=== PATIENT | male | born 1950 | race Caucasian/White ===

== ENCOUNTER 2018-12-21 06:37 | Inpatient (IN) | payer OTHER, MEDICARE ==
[2018-12-18 15:15] VITALS: BMI 27.6
[2018-12-21] VITALS (24 sets, daily range): BP systolic 119–156; BP diastolic 69–90; PULSE 71–95; RESP 13–20; Ht 190.5 cm; Wt 98.9 kg
[~2018-12-21] VITALS: Ht 190.5 cm; Wt 98.9 kg
--- NOTE | 2018-12-21 05:45 | HPN ---
Date/Time of Note Date/Time of Note DATE: 12/21/18 TIME: 05:45 Interval H&P Admission Note Pt. seen H&P reviewed: No system changes JANNET BEASLEY MD Dec 21, 2018 05:45
--- NOTE | 2018-12-21 05:47 | OPR ---
Date/Time of Note Date/Time of Note DATE: 12/21/18 TIME: 05:45 Operative Report Procedure Date: Dec 21, 2018 Preoperative Diagnosis Right shoulder secondary arthritis Postoperative Diagnosis 1. Right shoulder secondary glenohumeral arthritis 2. Right shoulder primary acromioclavicular joint arthritis 3. Right shoulder massive, unrepairable rotator cuff tear Operation/Procedure Performed 1. Right reverse total shoulder replacement 2. Right open distal clavicular excision 3. Injection of PRP solution in humerus Surgeon see signature line Mill Tender Second Operator Aryan Mckenzie DO Anesthesia Type: general Estimated Blood Loss: 100 - 150 ml's Transfusion none Specimen None Grafts/Implants See op note Complications none Pt Condition Post Procedure: stable Disposition: PACU Procedure Description PORTRAIT PHOTOGRAPHER SURGEON: Aryan Mckenzie DO was asked to be present for this case at my request. Assistance was necessary as a result of the highly technical nature of this operation. When performing an open total shoulder replacement, it is critical to have a trained medical assistant cardiology who is an expert in handling the extremity and assisting the surgeon in tasks such as manipulation of the arm, protection of the neurovascular structures and positioning the implants. This assistance cannot be performed by a management services technician, as it is considered an integral part of the procedure and the medical assistant cardiology should be compensated for their time. PROCEDURE IN DETAIL: Following the administration of general anesthesia supplemented with a peripheral nerve block for postoperative pain control, the patient was examined under anesthesia. Examination of the right shoulder re vealed very significant stiffness with limited forward flexion of about 100 degrees with a relatively solid endpoint. His abduction was limited to 80 degrees with severe subacromial crepitus. Prior to sterile prep and drape the forearm was then prepped and 60 cc of blood were pulled from the vein. The blood was then given to the rental sales representative to create a PRP infusion. The patient was then placed in the beach chair position. Sterile prep and drape was then undertaken. An extended deltopectoral incision was then carried through the interval exposing the conjoined tendon and retracting it medially. Attention was then directed back to the glenohumeral joint and the deltopectoral interval. The subscapularis was noted to be partially disrupted superiorly. Severe arthritic changes were noted with very large peripheral osteophytes. The superior rotator cuff was torn and retracted. The biceps tendon was torn and retracted. This was debrided. There was a central cyst in that area that was also excised. A humeral head osteotomy was then created in the appropriate degree of version and inclination. The humerus was retracted and the glenoid was exposed. Peripheral osteophytes were removed and a complete capsulectomy performed. The central canal of the glenoid was then entered and prepared for a standard Depuy baseplate. A standard Depuy baseplate was then applied with four peripheral screws and solid fixation. A 38 mm glenosphere was then applied, with solid fixation. The humerus was then reamed and prepared for a 12 mm humeral component with a standard metaphyseal component along with a 9 mm liner. The humeral canal was then thoroughly irrigated and the Vesely prepared PRP solution was then injected into the humeral canal. The actual components were implanted with solid fixation. The arm was taken through full range of motion with no evident instability. The joint was then thoroughly irrigated, the deep tissues were approximated using #1 suture followed by closure of the deep layer using 2-0 Monocryl. The skin was closed using 4-0 Monocryl suture, and a Prenio dressing. An Ultrasling was then applied. The patient was awakened and transported to the recovery room in stable condition. Estimated blood loss for this procedure was 150 cc. Radiographs will be obtained in the recovery room. JANNET BEASLEY MD Dec 21, 2018 05:47
[~2018-12-21 06:37] MED LIST: ATOR10TA65 PO; BENA40TA56 PO; GABA300C16 PO; METO-335 PO; MONT10TA21 PO; OMEP10CA4 PO; SERT50TA6 PO; TAMS0.4C2 PO
[2018-12-21] MEDS ORDERED: DESFLURANE 15 MIN ONE (07:00)
[2018-12-21] MEDS ORDERED: ROCURONIUM 50 MG INJ ONE (07:47)
[2018-12-21] MEDS ORDERED: CEFAZOLIN 1 GM INJ ONE (07:47)
[2018-12-21] MEDS ORDERED: NEOSTIGMINE 3 MG/3 ML SYRINGE ONE (07:47)
[2018-12-21] MEDS ORDERED: PROPOFOL 20 ML ONE (07:47)
[2018-12-21] MEDS ORDERED: GLYCOPYRROLATE 0.4 MG INJ ONE (07:47)
[2018-12-21] MEDS ORDERED: MIDAZOLAM 1 MG/ML 2 ML INJ ONE (07:48)
[2018-12-21] MEDS ORDERED: ONDANSETRON 4 MG INJ ONE (07:49)
[2018-12-21] MEDS ORDERED: FENTAnyl 50 MCG/ML VIAL ONE (07:49)
[2018-12-21] MEDS ORDERED: DEXAMETHASONE 4 MG/ML 5 ML INJ ONE (07:49)
[2018-12-21] MEDS ORDERED: ROPIVACAINE 0.5 % 30 ML VIAL ONE (07:51)
[2018-12-21] MEDS ORDERED: ASPI81TA52 PO (07:59)
[2018-12-21] MEDS ORDERED: SUGAMMADEX SODIUM 200 MG/2 ML VIAL IV ONE (08:30)
[2018-12-21] MEDS ORDERED: METOCLOPRAMIDE 10 MG INJ ONE (08:30)
[2018-12-21] MEDS ORDERED: DEXAMETHASONE 1 MG TAB PO SCH (09:00)
[2018-12-21] MEDS ORDERED: BUPIVACAINE 0.5% (SDV) 30 ML, morphine SULFATE (PF) 8 MG, EPINEPHrine 0.3 MG, KETOROLAC... IRR SCH ×7 (09:00)
[2018-12-21] MEDS ORDERED: CEFAZOLIN 2 GM/50 ML (PMX) 50 ML IVPB SCH (09:00)
[2018-12-21] MEDS ORDERED: GABAPENTIN 300 MG CAP PO SCH ×2 (09:00→21:00)
--- NOTE | 2018-12-21 09:09 | PREAC ---
Date/Time of Note Date/Time of Note DATE: 12/21/18 TIME: 09:07 Anesthesia Eval and Record Evaluation Time Pre-Procedure Interview DATE: 12/21/18 TIME: 09:07 Age 68 Sex male NPO: 8 hrs Preoperative diagnosis RIGHT SHOULDER OA Planned procedure RIGHT REVERSE TOTAL SHOULDER ARTHROPLASTY Past Medical History Past Medical History: Includes Cardio: HTN, Dyslipidemia Endo: Diabetes Pulm: Asthma GI: GERD Psych: Anxiety Surgery & Anesthesia Issues No known issue Meds Anticoagulation: No Beta Willie within 24 hr: Yes Reported Medications Aspirin (Low Dose Aspirin) 81 Mg Tablet.dr, 81 MG PO DAILY, #30 TAB 12/21/18 Sertraline Hcl* (Sertraline Hcl*) 50 Mg Tablet, 50 MG PO DAILY, #30 TAB 12/18/18 Gabapentin* (Gabapentin*) 300 Mg Capsule, 300 MG PO BID, #60 CAP 12/18/18 Montelukast Sodium* (Singulair*) 10 Mg Tablet, 10 MG PO QHS, #30 TAB 12/18/18 Tamsulosin Hcl* (Tamsulosin Hcl*) 0.4 Mg Cap.er.24h, 0.4 MG PO DAILY, CAP 12/18/18 Omeprazole* (Omeprazole*) 10 Mg Capsule.dr, 10 MG PO DAILY, #30 CAP 12/18/18 Atorvastatin Calcium (Atorvastatin Calcium) 10 Mg Tablet, 10 MG PO QHS for 1 Day, #30 TAB 12/18/18 Metoprolol Succinate* (Toprol XL*) 25 Mg Tab.sr.24h, 25 MG PO DAILY, #30 TAB 12/18/18 Benazepril Hcl* (Benazepril Hcl*) 40 Mg Tablet, 40 MG PO DAILY, #30 TAB 12/18/18 Current Medications Cefazolin Sodium/ Dextrose 50 ml @ 100 mls/hr PRE-OP IVPB ; Start 12/21/18 at 09:00; Stop 12/21/18 at 16:00 Tranexamic Acid 1000 mg/Dextrose 110 ml @ 200 mls/hr Pre-op IVPB ; Start 12/21/18 at 09:00; Stop 12/21/18 at 16:00 Bupivacaine HCl/ Morphine Sulfate/ Epinephrine/ Ketorolac Tromethamine/ Clonidine/Sodium Chloride/ Vancomycin HCl INTRA-OP IRR ; Start 12/21/18 at 09:00; Stop 12/21/18 at 16:00 Dexamethasone (Decadron) 2 mg PREOP PO Last administered on 12/21/18at 08:07; Admin Dose 2 MG; Start 12/21/18 at 09:00; Stop 12/21/18 at 16:00 Gabapentin (Neurontin) 300 mg ONCE PO Last administered on 12/21/18at 08:07; Admin Dose 300 MG; Start 12/21/18 at 09:00; Stop 12/21/18 at 16:00 Meds reviewed: Yes Allergies Coded Allergies: No Known Allergy (Unverified , 12/21/18) Allergies Reviewed: Yes Labs/Studies Labs Reviewed: Reviewed by anesthesiologist test: N/A Studies: ECG (SR&87 BPM), CXR (NAPD) Pre-procedure Exam Last vitals Vital Signs Date Temp Pulse Resp B/P (MAP) Pulse Ox O2 O2 Flow FiO2 Time Delivery Rate 12/21/18 96.7 71 16 119/78 95 07:45 (92) Airway: Adequate mouth opening, Adequate thyromental dist Mallampati: Mallampati II Teeth: Normal Lung: Normal Heart: Normal ASA Physical Status ASA physical status: 2 Emergency: None Planned Anesthetic General/MAC: ETT Nerve block: Brachial plexus (right) Planned Pain Management Parenteral pain med, Local by surgeon Pre-operative Attestations Prior to commencing anesthesia and surgery, the patient was re-evaluated, there was verification of: *The patient's identity *The results of appropriate recent lab work and preoperative vital signs *The above evaluation not changing prior to induction *Anesthetic plan, risk benefits, alternative and complications discussed with patient/family; questions answered; patient/family understands, accepts and wishes to proceed. Luis Ellis M.D. Dec 21, 2018 09:09
[2018-12-21] MEDS ORDERED: EPHEDrine SULFATE 50 MG/5 ML SYG IV PRN (09:30)
[2018-12-21] MEDS ORDERED: TRIMETHOBENZAMIDE 100 MG/ML VIAL IM PRN (09:30)
[2018-12-21] MEDS ORDERED: hydrALAzine 20 MG INJ IV PRN (09:30)
[2018-12-21] MEDS ORDERED: IPRATROPIUM (NEB) 0.5 MG/2.5 ML AMP HHN PRN (09:30)
[2018-12-21] MEDS ORDERED: DIPHENHYDRAMINE 50 MG INJ IV PRN ×2 (09:30→11:00)
[2018-12-21] MEDS ORDERED: MEPERIDINE 25 MG INJ IV PRN (09:30)
[2018-12-21] MEDS ORDERED: FENTAnyl 50 MCG/ML VIAL IV PRN ×3 (09:30)
[2018-12-21] MEDS ORDERED: ONDANSETRON 4 MG INJ IV PRN ×2 (09:30→11:00)
[2018-12-21] MEDS ORDERED: HYDROmorphONE 1 MG/5 ML IV SYRINGE IV PRN ×3 (09:30)
[2018-12-21] MEDS ORDERED: OXYCODONE/ACETAMINOPHEN (5/325) TAB PO PRN ×2 (09:30)
[2018-12-21] MEDS ORDERED: ALBUTEROL 0.083% (NEB) 2.5 MG/3 ML AMP HHN PRN (09:30)
[2018-12-21] MEDS ORDERED: LABETALOL HCL 20MG INJ IV PRN (09:30)
[2018-12-21] MEDS ORDERED: MIDAZOLAM 1 MG/ML 2 ML INJ IV PRN (09:30)
[2018-12-21] MEDS ORDERED: POLYMYXIN/BACITRACIN 1L IRRIG ONE (09:36)
[2018-12-21] MEDS ORDERED: CA CHLORIDE (GM) 10% 10 ML INJ ONE (09:36)
[2018-12-21] MEDS ORDERED: THROMBIN 5000 UNIT VIAL ONE (09:36)
--- NOTE | 2018-12-21 10:47 | PDOCDIS ---
Discharge Instructions DIAGNOSIS Discharge Diagnosis Rotator cuff tear arthropathy CONDITION [id number] Patient Condition: [id number] Good HOME CARE INSTRUCTIONS: [id number] Diet Instructions: [id number] Regular ACTIVITY: [id number] Activity Restrictions: [id number] Rest between Activity Keep Limb Elevated [id number] Bathing Restrictions: [id number] Shower FOLLOW UP/APPOINTMENTS Follow-up Plan 2 weeks SCHOOL/WORK RELEASE May return to School/Work with: With Restrictions School/Work Release Comment: 5 pound tabletop usage for 6 weeks JANNET BEASLEY MD Dec 21, 2018 10:47
--- NOTE | 2018-12-21 10:59 | NUR ---
nursing rr RECEIVED PT FROM OR NOT IN ANY DISTRESS PT S/P R TOTAL SHOULDER REPLACEMENT .PT HAS DSG TO R SHOULDER WITH SHOULDER IMMOBILIZER .NEURO VASCULAR CHECK DONE AND IT IS INTACT . DENIES ANY PAIN OR DISCOMFORT AT THIS MOMENT.IV TO LEFT HAND G20 NEEDLE WITH LR INFUSING WELL .
[2018-12-21] MEDS ORDERED: NACL 0.9% 3 ML SYG IV SCH (11:00)
[2018-12-21] MEDS ORDERED: LOPERAMIDE 2 MG CAP PO PRN (11:00)
[2018-12-21] MEDS ORDERED: HYDROmorphONE 1 MG/ML SYG IV PRN (11:00)
[2018-12-21] MEDS ORDERED: MAGNESIUM HYDROXIDE 30ML CUP PO PRN (11:00)
[2018-12-21] MEDS ORDERED: KETOROLAC 15 MG INJ IV PRN (11:00)
[2018-12-21] MEDS ORDERED: TRANEXAMIC ACID 1,000 MG in SOD CHLORIDE 0.9% 100 ML IVPB SCH (11:00)
[2018-12-21] MEDS ORDERED: oxyCODONE 5 MG TAB PO PRN ×3 (11:00)
[2018-12-21] MEDS ORDERED: ZOLPIDEM 5 MG TAB PO PRN (11:00)
--- NOTE | 2018-12-21 11:12 | PAC ---
Date/Time of Note Date/Time of Note DATE: 12/21/18 TIME: 11:12 Post-Anesthesia Notes Post-Anesthesia Note Last documented vital signs Vital Signs Date Temp Pulse Resp B/P (MAP) Pulse Ox O2 O2 Flow FiO2 Time Delivery Rate 12/21/18 96.7 71 16 119/78 95 07:45 (92) Activity: WNL Respiratory function: WNL Cardiovascular function: WNL Mental status: Baseline Pain reasonably controlled: Yes Hydration appropriate: Yes Nausea/Vomiting absent: Yes Luis Ellis M.D. Dec 21, 2018 11:12
[2018-12-21] MEDS: CEFAZOLIN 1 GM/50 ML (PMX) 50 ML IVPB SCH ×2 (12:08→19:37)
--- NOTE | 2018-12-21 12:33 | NUR ---
TRANSFER PT TRANSFER TO ROOM 410 IN STABLE CONDITION CARE PROVIDED PER [facility] STANDARDS. PT KARI MADE AWARE OF PT ROOM AND UPDATED OM PATIENTS CONDITION .
[2018-12-21] MEDS: TRANEXAMIC ACID 1,000 MG in DEXTROSE 5% 100 ML IVPB SCH ×2 (12:39→12:40)
[2018-12-21] MEDS: DEXAMETHASONE 2 MG TAB PO SCH ×2 (13:19→17:47)
[2018-12-21] MEDS: ACETAMINOPHEN 500 MG TAB PO SCH ×2 (13:20→17:47)
--- NOTE | 2018-12-21 18:31 | NUR ---
EOSS Patient a and o x 4, received from PACU after right total shoulder replacement with Dr. Howard. SBP 140's-150's with diastolic bp 89/90, patient reports he took all BP medications this morning. Patient reports he is diabetic and takes Metformin 1000mg po BID, message left for Dr. Howard to follow up if medication should be ordered/accuchecks. Dermabond intact to right shoulder with immobilizer in place on right arm. Patient able to move fingers, reports no pain in right shoulder. Educated on preventative pain management and that the block will wear off and he should alert nursing staff when he begins to feel pain. Tolerating po diet without nausea/vomiting. Voiding post surgery, no BM. SCDs bilateral LE. Hourly rounding performed, bed kept in low, locked position, call light within reach.
[2018-12-21] MEDS ORDERED: MONTELUKAST 10 MG TAB PO SCH (21:00)
[2018-12-21] MEDS ORDERED: ATORVASTATIN 10 MG TAB PO SCH (21:00)
[2018-12-21] MEDS: SENNA/DOCUSATE NA (8.6MG/50MG) TAB PO SCH (21:01)
[2018-12-21] MEDS: GABAPENTIN 300 MG CAP PO SCH (21:01)
--- NOTE | 2018-12-21 21:45 | NUR ---
Dr. 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 Currently on Decadron PO med every 6 hours post-op and unable to recall last time his A1C was checked. No accu-checks currently ordered. Patient verbalized he is anticipating to be discharged by tomorrow, would rather have blood sugar checked by tomorrow am and verbalized he is very conscientious of diet he takes from home and regularly checks his blood sugar too which has been normal. Dr. Craig (covering physician for Dr. Howard) notified, stated he does not have privileges for medical orders, okayed Accu-checks to be done AC/HS with mild algorithm however instructed RN to mention this to Dr. Howard tomorrow early am rounds, including whether he wants Metformin PO meds started. Also to clarify if surgeon wants to order additional am labs then including the A1C. Will continue to monitor patient and assist with needs. Addendum: 12/22/18 at 0059 by EILEEN GRANADOS RN Late entry: also clarified need for any pharmacological VTE with Dr. Craig-RN instructed to also clarify with surgeon during am rounds. Stated patient will be most likely discharged Tuesday.
[2018-12-22 00:01] VITALS: BP 127/70; PULSE 75
[2018-12-22] MEDS: DEXAMETHASONE 2 MG TAB PO SCH ×2 (00:51→06:05)
[2018-12-22] MEDS: ACETAMINOPHEN 500 MG TAB PO SCH ×2 (00:51→06:05)
[2018-12-22] MEDS: CEFAZOLIN 1 GM/50 ML (PMX) 50 ML IVPB SCH (03:26)
--- NOTE | 2018-12-22 05:44 | NUR ---
RN EOSS NOTES: Patient slept well overnight after being medicated with Ambien. Medicated once with IV Ketorolac with good effect and has refused to be given additional pain meds since last night. Prineo dressing to right shoulder remains C/D/I, no drainge noted. V/S has been stable this shift and he has been afebrile as well. Right shoulder orthotic sling maintained. Anticipating to see his surgeon during am rounds today. RN would need to clarify need for additional orders as per Dr. Craig's instruction from last night. If Dr. Howard has not come to visit yet by 729, will endorse for ff-up to incoming day RN. Needs assisted.
[2018-12-22] MEDS ORDERED: PANTOPRAZOLE SODIUM 20 MG TABEC PO SCH (06:00)
--- NOTE | 2018-12-22 07:23 | PN ---
Date/Time of Note Date/Time of Note DATE: 12/22/18 TIME: 07:21 Subjective Patient is doing well. Minimal pain. Feels well and ready to go home. Has DM2, we will get a BS before he leaves. He will resume metformin since he is eating. Objective Vitals Vital Signs Date Temp Pulse Resp B/P (MAP) Pulse Ox O2 O2 Flow FiO2 Time Delivery Rate 12/22/18 98.1 75 127/70 96 Room Air 00:01 (89) 12/21/18 18 19:35 12/21/18 2.0 14:49 Intake and Output 12/21/18 12/21/18 12/22/18 1515:00 23:00 07:00 IntakeIntake Total 2180 ml 1250 ml 410 ml OutputOutput Total 75 ml BalanceBalance 2105 ml 1250 ml 410 ml AAOx3. Sitting comfortably in NAD with sling. No drainage from wound and no erythema/edema. Neuro intact to light touch, able to move fingers/wrist freely. Medications Medications Current Medications Atorvastatin Calcium (Lipitor) 10 mg QHS PO Last administered on 12/21/18at 21:01; Admin Dose 10 MG; Start 12/21/18 at 21:00 Benazepril HCl (Lotensin) 40 mg DAILY PO ; Start 12/22/18 at 09:00 Gabapentin (Neurontin) 300 mg BID PO Last administered on 12/21/18at 21:01; Admin Dose 300 MG; Start 12/21/18 at 21:00 Metoprolol Succinate (Toprol Xl) 25 mg DAILY PO ; Start 12/22/18 at 09:00 Montelukast Sodium (Singulair) 10 mg QHS PO Last administered on 12/21/18at 21:01; Admin Dose 10 MG; Start 12/21/18 at 21:00 Sertraline HCl (Zoloft) 50 mg DAILY PO ; Start 12/22/18 at 09:00 Tamsulosin HCl (Flomax) 0.4 mg DAILY PO ; Start 12/22/18 at 09:00 Pantoprazole Sodium (Protonix) 20 mg DAILY@0600 PO Last administered on 12/22/18at 06:05; Admin Dose 20 MG; Start 12/22/18 at 06:00 Senna/Docusate Sodium (Senokot-S) 1 tab BID PO Last administered on 12/21/18at 21:01; Admin Dose 1 TAB; Start 12/21/18 at 21:00 Simethicone (Mylicon) 80 mg TID PRN PO .GAS; Start 12/21/18 at 11:00 Magnesium Hydroxide (Milk Of Mag) 30 ml BID PRN PO .CONSTIPATION; Start 12/21/18 at 11:00 Loperamide HCl (Imodium Cap) 2 mg Q6H PRN PO .DIARRHEA; Start 12/21/18 at 11:00 Gabapentin (Neurontin) 300 mg HS PO Last administered on 12/21/18at 21:43; Admin Dose 300 MG; Start 12/21/18 at 21:00 Acetaminophen (Tylenol Tab) 500 mg Q6 PO Last administered on 12/22/18at 06:05; Admin Dose 500 MG; Start 12/21/18 at 12:00 Oxycodone HCl (Roxicodone) 15 mg Q4H PRN PO .PAIN; Start 12/21/18 at 11:00 Oxycodone HCl (Roxicodone) 10 mg Q4H PRN PO .PAIN; Start 12/21/18 at 11:00 Oxycodone HCl (Roxicodone) 5 mg Q4H PRN PO .PAIN; Start 12/21/18 at 11:00 Hydromorphone HCl (Dilaudid) 1 mg Q4H PRN IV .BREAKTHROUGH PAIN; Start 12/21/18 at 11:00 Ketorolac Tromethamine (Toradol) 15 mg Q6H PRN IV .PAIN Last administered on 12/21/18at 19:41; Admin Dose 15 MG; Start 12/21/18 at 11:00 Ondansetron HCl (Zofran Inj) 4 mg Q6H PRN IV NAUSEA/VOMITING; Start 12/21/18 at 11:00 Diphenhydramine HCl (Benadryl) 25 mg Q6H PRN IV .PRURITUS; Start 12/21/18 at 11:00 Zolpidem Tartrate (Ambien) 10 mg HS PRN PO .INSOMNIA Last administered on 12/21/18at 21:36; Admin Dose 10 MG; Start 12/21/18 at 11:00 IV Flush (NS 3 ml) 3 ml per protocol IV ; Start 12/21/18 at 11:00 VTE Prophylaxis Risk score (from Nsg)>0 risk: 2 SCD applied (from [facility]): No SCD contraindication: low risk/ambulating Lines/Catheters IV Catheter Type: Peripheral IV Dang in Place: MURPHY Shields PA-C Dec 22, 2018 07:23
[2018-12-22] MEDS ORDERED: metFORMIN 500 MG TAB PO SCH (07:50)
--- NOTE | 2018-12-22 08:18 | NUR ---
OT EVAL: Pt is a 68 year old male s/p Right reverse total shoulder replacement. PLOF: Pt lives with in a 2 story home. Pt was independent with ADL's prior to surgery. CLOF: RN cleared pt for OT services. Pt received supine in bed and agreeable to tx. Pt AOX4, stable vitals and stated 0/10 pain. OTR reviewed ROM restrictions (keep arm where you can see it, no extreme extension and overhead motions), HEP and application and wear use of immobilizer sling. Pt proceeded to perform UB/LB dressing, h/g and functional mob independently. Pt is independent with ADL's, and demonstrates good understanding of precautions and HEP. No further skilled OT warranted. D/C OT
[2018-12-22] MEDS: SENNA/DOCUSATE NA (8.6MG/50MG) TAB PO SCH (08:27)
[2018-12-22] MEDS: GABAPENTIN 300 MG CAP PO SCH (08:27)
[2018-12-22 08:32] VITALS: BP 121/62; PULSE 78; RESP 19
[2018-12-22] MEDS ORDERED: BENAZEPRIL 40 MG TAB PO SCH (09:00)
[2018-12-22] MEDS ORDERED: METOPROLOL (XL) 25 MG TAB PO SCH (09:00)
[2018-12-22] MEDS ORDERED: SERTRALINE 50 MG TAB PO SCH (09:00)
[2018-12-22] MEDS ORDERED: TAMSULOSIN (SR) 0.4 MG CAP PO SCH (09:00)
--- NOTE | 2018-12-22 09:15 | NUR ---
PT IS DC HOME. DISCHARGE INSTRUCTIONS WAS GIVEN TO THE PT. HAS APPT TO SEE DR. BEASLEY ON 01/05. PT HAS HIS PRESCRIPTION. STABLE AT THIS TIME WITH NO COMPLAINS OF PAIN. VERBALIZED UNDERSTANDING. WAITING FOR THE TO COME TO DC HOME.
--- NOTE | 2018-12-22 11:43 | NUR ---
PT LEFT AT 1030 VIA WHEELCHAIR.
--- NOTE | 2018-12-25 16:19 | DS ---
Date/Time of Note Date/Time of Note DATE: 12/25/18 TIME: 16:19 Discharge Summary Admission/Discharge Info Admit Date/Time Dec 21, 2018 at 06:37 Discharge Date/Time Dec 22, 2018 at 10:30 Discharge Diagnosis Rotator cuff tear arthropathy Patient Condition: Good Hospital Course Surgery, then dc in am after OT Home Meds Reported Medications Aspirin (Low Dose Aspirin) 81 Mg Tablet.dr, 81 MG PO DAILY, #30 TAB 12/21/18 Sertraline Hcl* (Sertraline Hcl*) 50 Mg Tablet, 50 MG PO DAILY, #30 TAB 12/18/18 Gabapentin* (Gabapentin*) 300 Mg Capsule, 300 MG PO BID, #60 CAP 12/18/18 Montelukast Sodium* (Singulair*) 10 Mg Tablet, 10 MG PO QHS, #30 TAB 12/18/18 Tamsulosin Hcl* (Tamsulosin Hcl*) 0.4 Mg Cap.er.24h, 0.4 MG PO DAILY, CAP 12/18/18 Omeprazole* (Omeprazole*) 10 Mg Capsule.dr, 10 MG PO DAILY, #30 CAP 12/18/18 Atorvastatin Calcium (Atorvastatin Calcium) 10 Mg Tablet, 10 MG PO QHS for 1 Day, #30 TAB 12/18/18 Metoprolol Succinate* (Toprol XL*) 25 Mg Tab.sr.24h, 25 MG PO DAILY, #30 TAB 12/18/18 Benazepril Hcl* (Benazepril Hcl*) 40 Mg Tablet, 40 MG PO DAILY, #30 TAB 12/18/18 Follow-up Plan 2 weeks Primary Care Provider Not On Staff Doctor JANNET BEASLEY MD Dec 25, 2018 16:19
== END 2018-12-22 10:30 | disposition home or self-care (01) | DRG 483 ==
LOC: REC 06:37 → MS1 12:45
PROVIDERS: ADMIT Orthopaedic Surgery; ATTEND Orthopaedic Surgery
PROC: 0PB90ZZ Excision of Right Clavicle, Open Approach (ICD-10-PCS; 2018-12-21)
PROC: 0RRJ00Z Replacement of Right Shoulder Joint with Reverse Ball and Socket Synthetic Substitute, Open Approach (ICD-10-PCS; principal; 2018-12-21 09:30)
DX: M19.011 Primary osteoarthritis, right shoulder (principal); M75.101 Unspecified rotator cuff tear or rupture of right shoulder, not specified as traumatic; I10 Essential (primary) hypertension; E78.5 Hyperlipidemia, unspecified; E11.9 Type 2 diabetes mellitus without complications; K21.9 Gastro-esophageal reflux disease without esophagitis; J45.909 Unspecified asthma, uncomplicated; N40.0 Benign prostatic hyperplasia without lower urinary tract symptoms; F41.9 Anxiety disorder, unspecified; Z96.642 Presence of left artificial hip joint; Z79.82 Long term (current) use of aspirin; Z79.84 Long term (current) use of oral hypoglycemic drugs; Z87.891 Personal history of nicotine dependence
CPT/HCPCS: 82962; 86999; 88304; 88311; 97166; C1776; J0171; J0690; J0735; J1100; J1885; J2250; J2274; J2405; J2710; J2765; J2795; J3010; J3370